=== PATIENT | female | born 1925 | race Caucasian/White ===

== ENCOUNTER → 2017-07-12 | Outpatient (CLI) | payer OTHER ==
[~2017-07-12] MED LIST: ACULAR 3ML 3 ML5 ML; ANTIVERT/2525 MG PO; ASPI-COR81 M1 PO; BIAXIN500 MG PO; CILOSTAZOL50 MG PO; CRESTOR5 MG PO; DETROL1 MG PO; ENABLEX7.5 MG PO; ETODOLAC200 MG PO; EVISTA60 MG PO; GABAPENTIN100 MG PO; HYDROCODONE BIT1 T11 PO; MEDROL DOSEPAK4 MG PO; MIRAPEX0.75 MG PO; NEXIUM20 MG PO; OCUFLOX 0.3% 5 M5 ML; OSCAL ULTRA 6001 TAB PO; PRED FORTE 1 ML1 ML; PRINIVIL2.5 MG PO; PROVENTIL0.09 MG/AC IH; VICODIN 5/500 505 MG PO
[2017-07-12 11:51] LABS: ALBUMIN 3.7 gm/dl (3.1-4.5); ALKALINE PHOSPHATASE 90 U/L (45-117); BILIRUBIN, DIRECT 0.1 mg/dL (0.0-0.2); BUN 25 mg/dl (7-24); CHLORIDE 109 mmol/L (98-107); CHOLESTEROL 130 mg/dL (<200); CREATININE 0.83 mg/dL (0.55-1.02); HDL CHOLESTEROL 39 mg/dl (40-60); LDL CHOLESTEROL 47 mg/dL (9-159); POTASSIUM 4.3 mmol/L (3.5-5.1); SGOT/AST 23 IU/L (3-35); SGPT/ALT 18 U/L (12-78); SODIUM 145 mmol/L (136-145); TOTAL PROTEIN 7.6 gm/dL (6.4-8.2); TRIGLYCERIDES 220 mg/dl (<150); VLDL CHOLESTEROL 44 mg/dL (6-40)
== END | disposition home or self-care (01) ==
LOC: LAB 10:41
PROVIDERS: Internal Medicine
DX: I10 Essential (primary) hypertension (principal); E78.4 Other hyperlipidemia; E55.9 Vitamin D deficiency, unspecified; G25.89 Other specified extrapyramidal and movement disorders; R73.02 Impaired glucose tolerance (oral); Z79.811 Long term (current) use of aromatase inhibitors